=== PATIENT | male | born 1970 | race Caucasian/White ===

== ENCOUNTER 2017-01-01 03:08 | Emergency (ER) | payer MEDICAID, OTHER ==
[~2017-01-01] VITALS: Ht 175.3 cm; Wt 113.4 kg
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
--- OUTSIDE RECORDS SUMMARY | 2017-01-01 03:18 | XMS REPORT ---
Author Author JULIUS DOTY [facility] Address [address] [place] [address] Care Team Providers Care Firmware Software Verification Engineer Name Role Phone LALITHA JULIUS Unavailable PROBLEMS Type Condition ICD9-CM Code [id number] Code Onset Dates Condition Status SNOMED Code Problem Unspecified infective otitis externa 380.10 Active [id number] ALLERGIES Substance Reaction Event Type Date Status N.K.D.A. Unknown Non Drug Allergy Mar, Unknown SOCIAL HISTORY No smoking Hx information available PLAN OF CARE VITAL SIGNS Height 70 in 2016-04-08 Weight 284 lbs 2016-04-08 Temperature 97.9 degrees Fahrenheit 2016-04-08 Heart Rate 82 bpm 2016-04-08 Respiratory Rate 16 2016-04-08 BMI 40.75 kg/m2 2016-04-08 Blood pressure systolic 140 mmHg 2016-04-08 Blood pressure diastolic 100 mmHg 2016-04-08 MEDICATIONS Medication Instructions Dosage Frequency Start Date End Date Duration Status PredniSONE 20 mg Orally Once a day 2 tablets 24h Mar, Mar, 05 days Active RESULTS No Results PROCEDURES Procedure Date Ordered Related Diagnosis Body Site Office Visit, Est Pt., Level 3 Apr 08, 2016 IMMUNIZATIONS No Known Immunizations
--- OUTSIDE RECORDS SUMMARY | 2017-01-01 03:18 | XMS REPORT ---
Author Author JULIUS DOTY [facility] Address [facility] [place] [address] Care Team Providers Care Distribution Tech Name Role Phone UJLIUS DOTY Unavailable PROBLEMS Type Condition ICD9-CM Code [id number] Code Onset Dates Condition Status SNOMED Code Problem Unspecified infective otitis externa 380.10 Active [id number] ALLERGIES Substance Reaction Event Type Date Status N.K.D.A. Unknown Non Drug Allergy Mar, Unknown SOCIAL HISTORY No smoking Hx information available PLAN OF CARE VITAL SIGNS MEDICATIONS No Known Medications RESULTS No Results PROCEDURES No Known procedures IMMUNIZATIONS No Known Immunizations
--- OUTSIDE RECORDS SUMMARY | 2017-01-01 03:18 | XMS REPORT ---
Author Author MARIANO ZUÑIGA Organization [facility] Address [address] [place] [address] Care Team Providers Care Community Nutrition Educator Name Role Phone GILDAJuan JoseMARIANO Unavailable PROBLEMS Type Condition ICD9-CM Code EIL65-CM Code Onset Dates Condition Status SNOMED Code Problem Unspecified infective otitis externa 380.10 Active [id number] ALLERGIES Substance Reaction Event Type Date Status N.K.D.A. Unknown Non Drug Allergy Feb, Unknown SOCIAL HISTORY No smoking Hx information available PLAN OF CARE Activity Details Follow Up establish care Reason: VITAL SIGNS Height 70 in 2016-03-20 Weight 283.6 lbs 2016-03-20 Temperature 97.6 degrees Fahrenheit 2016-03-20 Heart Rate 76 bpm 2016-03-20 Respiratory Rate 18 2016-03-20 BMI 40.69 kg/m2 2016-03-20 Blood pressure systolic 138 mmHg 2016-03-20 Blood pressure diastolic 88 mmHg 2016-03-20 MEDICATIONS Medication Instructions Dosage Frequency Start Date End Date Duration Status Zyrtec Allergy 10 MG Orally Once a day 1 tablet 24h Active PredniSONE 20 mg Orally Once a day with food in the morning 1 tablet Feb, Feb, 05 days Active RESULTS No Results PROCEDURES Procedure Date Ordered Related Diagnosis Body Site Office Visit, Est Pt., Level 3 Mar 20, 2016 DEXAMETHASONE 4MG/ML (PER 1 MG) Mar 20, 2016 DEPO MEDROL 40 MG/ML Mar 20, 2016 THER/PROPH/DIAG INJ, SC/IM Mar 20, 2016 IMMUNIZATIONS Vaccine Route Administration Date Status DEPO MEDROL 40 MG/ML IM Intramuscular Mar 20, 2016 Administered DEXAMETHASONE 4MG/ML (PER 1 MG) IM Intramuscular Mar 20, 2016 Administered
--- OUTSIDE RECORDS SUMMARY | 2017-01-01 03:18 | XMS REPORT | Continuity of Care Document ---
Author Author [facility] Address Unknown Phone Unavailable Allergies Medications Problems Date Dx Coded Attending Type Code Diagnosis Diagnosed By 03/22/2013 TWILA GREEN, MARÍA 380.10 INFECTIVE OTITIS EXTERNA UNSPECIFIED Procedures Results Encounters ACCT No. Visit Date/Time Discharge Status Pt. Type Provider Facility Loc./Unit Complaint [id number] 03/22/2013 15:54:00 03/22/2013 23: 59:59 CLS Outpatient AMRÍA MATTSON MD
[2017-01-01 03:44] VITALS: BP 130/87
[2017-01-01] MEDS ORDERED: TETANUS,DIPTH,PERTUSS P/F (BOOSTRIX) 0.5 ML VIAL IM ONE ×2 (03:45→19:35)
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
[2017-01-01] MEDS ORDERED: OLANZapine 5 MG ODT (ZyPREXA ZYDIS) ONE (17:52)
[2017-01-01] MEDS ORDERED: fentaNYL INJECTION 100 MCG/2 ML AMP ONE (19:38)
[2017-01-01] MEDS ORDERED: HALOPERIDOL 5 MG (HALDOL) TAB ONE (22:20)
== END 2017-01-01 03:44 | disposition left against medical advice (07) ==
LOC: ER 03:15
DX: S01.01XA Laceration without foreign body of scalp, initial encounter (principal); Z23 Encounter for immunization; V48.6XXA Car passenger injured in noncollision transport accident in traffic accident, initial encounter
CPT/HCPCS: 99282

== ENCOUNTER 2017-01-01 14:37 | Emergency (ER) | payer OTHER ==
[~2017-01-01] VITALS: Ht 172.7 cm; Wt 99.8 kg
[2017-01-01 15:13] VITALS: BP 146/101
== END 2017-01-01 16:02 | disposition left against medical advice (07) ==
LOC: EDUNIT# 14:37 → ER 14:40
DX: S09.90XA Unspecified injury of head, initial encounter (principal); S69.91XA Unspecified injury of right wrist, hand and finger(s), initial encounter; S91.319A Laceration without foreign body, unspecified foot, initial encounter; W16.92XA Jumping or diving into unspecified water causing other injury, initial encounter
CPT/HCPCS: 93005; 99281

== ENCOUNTER 2017-01-01 17:23 | Observation (INO) | payer OTHER ==
[~2017-01-01] VITALS: Ht 180.3 cm; Wt 123.5 kg
[2017-01-01] MEDS ORDERED: OLANZapine 5 MG ODT (ZyPREXA ZYDIS) PO ONE (17:45)
[2017-01-01 17:59] LABS: BASOPHILS # (AUTO) 0.1 10^3/uL (0.0-0.1); BASOPHILS % (AUTO) 0 % (0-10); EOSINOPHILS # (AUTO) 0.3 10^3/uL (0.0-0.3); EOSINOPHILS % (AUTO) 2 % (0-10); LYMPHOCYTES # (AUTO) 1.5 X 10^3 (1.0-4.0); LYMPHOCYTES % (AUTO) 12 % (12-44); MEAN CORPUSCULAR HEMOGLOBIN 31 PG (25-34); MEAN CORPUSCULAR HGB CONC 34 G/DL (32-36); MEAN CORPUSCULAR VOLUME 92 FL (80-99); MEAN PLATELET VOLUME 9.4 FL (7.4-10.4); MONOCYTES # (AUTO) 1.2 X 10^3 (0.0-1.0); MONOCYTES % (AUTO) 10 % (0-12); NEUTROPHILS # (AUTO) 8.9 X 10^3 (1.8-7.8); NEUTROPHILS % (AUTO) 75 % (42-75); PLATELET COUNT 219 10^3/uL (130-400); RED BLOOD COUNT 4.75 10^6/uL (4.35-5.85); RED CELL DISTRIBUTION WIDTH 13.1 % (10.0-14.5); WHITE BLOOD COUNT 11.8 10^3/uL (4.3-11.0)
[2017-01-01 18:22] LABS: ALANINE AMINOTRANSFERASE 120 U/L (0-55); ALCOHOL < 10 MG/DL (<10); ANION GAP 13 MMOL/L (5-14); ASPARTATE AMINO TRANSFERASE 215 U/L (5-34); BLOOD UREA NITROGEN 21 MG/DL (7-18); BUN/CREATININE RATIO 24; CALCIUM 9.2 MG/DL (8.5-10.1); CARBON DIOXIDE 23 MMOL/L (21-32); CHLORIDE 105 MMOL/L (98-107); CREATININE SERUM 0.88 MG/DL (0.60-1.30); GFR ESTIMATED > 60; GLUCOSE 183 MG/DL (70-105); POTASSIUM 3.6 MMOL/L (3.6-5.0); SALICYLATE < 5.0 MG/DL (5.0-20.0); SODIUM 141 MMOL/L (135-145); TOTAL PROTEIN 7.1 GM/DL (6.4-8.2)
[2017-01-01 18:29] LABS: ACETAMINOPHEN < 10 UG/ML (10-30)
--- NOTE | 2017-01-01 18:43 | Diagnostic Imaging Report ---
INDICATION: Injury. COMPARISON: None. EXAMINATION: Three views of the right hand were obtained. FINDINGS: There is an impacted comminuted fracture of the distal fifth metacarpal with mild volar angulation of the distal fragment. No additional fracture, malalignment or osseous destructive process is seen. IMPRESSION: Impacted mildly angulated nondisplaced fracture of the distal right fifth metacarpal. Report was called to Dr. Pedro Tolbert in the [facility] ER at 6:42 p.m., by mary. Dictated by: Dictated on workstation # [id number]
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
[2017-01-01] MEDS ORDERED: fentaNYL INJECTION 100 MCG/2 ML AMP IVP ONE (19:45)
[2017-01-01] MEDS ORDERED: HALOPERIDOL 5 MG (HALDOL) TAB PO ONE (22:30)
[2017-01-01 22:38] LABS: BILIRUBIN,URINE NEGATIVE (NEGATIVE); KETONES,URINE 3+ (NEGATIVE); LEUKOCYTE ESTERASE ,URINE 1+ (NEGATIVE); NITRITE,URINE NEGATIVE (NEGATIVE); PH,URINE 6 (5-9); PROTEIN,URINE 2+ (NEGATIVE); UROBILINOGEN,URINE 1 MG/DL (NORMAL)
[2017-01-01 22:55] VITALS: BP 126/82
[2017-01-01 23:09] LABS: SQUAMOUS EPITHELIAL CELL,UR RARE /HPF; WBC,URINE 0-2 /HPF
[2017-01-01] MEDS ORDERED: fentaNYL INJECTION 100 MCG/2 ML AMP IV PRN (23:15)
[2017-01-01] MEDS ORDERED: ONDANSETRON 4 MG/2 ML (SDV) Z0FRAN IV PRN (23:15)
[2017-01-02 06:19] VITALS: BP 144/85
[2017-01-02] MEDS: HALOPERIDOL 5 MG (HALDOL) TAB PO SCH ×3 (06:19→20:43)
[2017-01-02 06:53] LABS: BASOPHILS # (AUTO) 0.1 10^3/uL (0.0-0.1); BASOPHILS % (AUTO) 1 % (0-10); EOSINOPHILS # (AUTO) 0.4 10^3/uL (0.0-0.3); EOSINOPHILS % (AUTO) 5 % (0-10); LYMPHOCYTES # (AUTO) 1.2 X 10^3 (1.0-4.0); LYMPHOCYTES % (AUTO) 15 % (12-44); MEAN CORPUSCULAR HEMOGLOBIN 31 PG (25-34); MEAN CORPUSCULAR HGB CONC 33 G/DL (32-36); MEAN CORPUSCULAR VOLUME 93 FL (80-99); MEAN PLATELET VOLUME 9.2 FL (7.4-10.4); MONOCYTES # (AUTO) 0.9 X 10^3 (0.0-1.0); MONOCYTES % (AUTO) 12 % (0-12); NEUTROPHILS # (AUTO) 5.2 X 10^3 (1.8-7.8); NEUTROPHILS % (AUTO) 67 % (42-75); PLATELET COUNT 216 10^3/uL (130-400); RED BLOOD COUNT 4.37 10^6/uL (4.35-5.85); RED CELL DISTRIBUTION WIDTH 13.2 % (10.0-14.5); WHITE BLOOD COUNT 7.7 10^3/uL (4.3-11.0)
[2017-01-02 07:03] LABS: ANION GAP 8 MMOL/L (5-14); BLOOD UREA NITROGEN 16 MG/DL (7-18); BUN/CREATININE RATIO 22; CALCIUM 8.5 MG/DL (8.5-10.1); CARBON DIOXIDE 25 MMOL/L (21-32); CHLORIDE 107 MMOL/L (98-107); CREATININE SERUM 0.74 MG/DL (0.60-1.30); GFR ESTIMATED > 60; GLUCOSE 146 MG/DL (70-105); POTASSIUM 3.7 MMOL/L (3.6-5.0); SODIUM 140 MMOL/L (135-145)
[2017-01-02] MEDS ORDERED: CATHETER FLUSH 10 ML SYR IV PRN (07:30)
[2017-01-02] MEDS ORDERED: INFLUENZA TRIvalent 2017-2018 0.5 ML/45 MCG SYR IM ONE (07:30)
[2017-01-02 08:00] VITALS: BP 129/81
[2017-01-02] MEDS: CATHETER FLUSH 10 ML SYR IV SCH ×2 (14:00→22:03)
[2017-01-02 20:37] VITALS: BP 144/86
[2017-01-02] MEDS: OLANZapine 5 MG (ZyPREXA) TAB PO SCH (20:43)
[2017-01-03] MEDS: CATHETER FLUSH 10 ML SYR IV SCH ×3 (04:49→21:56)
[2017-01-03 06:25] LABS: ALANINE AMINOTRANSFERASE 90 U/L (0-55); ALBUMIN 3.5 GM/DL (3.2-4.5); ANION GAP 12 MMOL/L (5-14); ASPARTATE AMINO TRANSFERASE 80 U/L (5-34); BILIRUBIN,TOTAL 0.6 MG/DL (0.1-1.0); BLOOD UREA NITROGEN 12 MG/DL (7-18); BUN/CREATININE RATIO 15; CALCIUM 8.9 MG/DL (8.5-10.1); CARBON DIOXIDE 22 MMOL/L (21-32); CHLORIDE 105 MMOL/L (98-107); CREATINE KINASE 1845 U/L (30-200); CREATININE SERUM 0.81 MG/DL (0.60-1.30); GFR ESTIMATED > 60; GLUCOSE 140 MG/DL (70-105); POTASSIUM 3.7 MMOL/L (3.6-5.0); SODIUM 139 MMOL/L (135-145); TOTAL PROTEIN 6.5 GM/DL (6.4-8.2)
[2017-01-03] MEDS: HALOPERIDOL 5 MG (HALDOL) TAB PO SCH ×3 (06:48→21:51)
[2017-01-03 06:50] VITALS: BP 121/75
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
[2017-01-03 12:00] VITALS: BP 140/69
[2017-01-03] MEDS ORDERED: ZIPRASIDONE 20 MG INJ (GEODON) VIAL IM NR (19:00)
[2017-01-03] MEDS: OLANZapine 5 MG (ZyPREXA) TAB PO SCH (21:51)
[2017-01-04] MEDS: CATHETER FLUSH 10 ML SYR IV SCH (06:01)
[2017-01-04] MEDS ORDERED: WATER (STERILE) FOR INJECTION 10 ML ONE (07:30)
[2017-01-04] MEDS ORDERED: ZIPRASIDONE 20 MG INJ (GEODON) VIAL IM ONE (07:30)
[2017-01-04] MEDS: HALOPERIDOL 5 MG (HALDOL) TAB PO SCH (07:44)
== END 2017-01-04 07:41 ==
LOC: EDUNIT# 17:23 → ER 17:24 → ICU 22:35 → UNDOADMOB 22:35 → ICU 22:50 → UNDODISOB 01-04 07:50
PROVIDERS: ADMIT Pediatrics; ATTEND Pediatrics
DX: F29 Unspecified psychosis not due to a substance or known physiological condition (principal); M62.82 Rhabdomyolysis; S62.666A Nondisplaced fracture of distal phalanx of right little finger, initial encounter for closed fracture; V48.4XXA Person boarding or alighting a car injured in noncollision transport accident, initial encounter; Z59.0 Homelessness; Z87.891 Personal history of nicotine dependence
CPT/HCPCS: 29125; 36415; 73130; 80048; 80053; 80306; 80320; 80329; 81000; 82550; 82553; 85025; 93005; 96374

== ENCOUNTER → 2017-10-15 | Outpatient (CLI) | payer OTHER ==
--- NOTE | 2017-10-15 13:33 | Diagnostic Imaging Report ---
INDICATION: Sensation with palpation in the neck. FINDINGS: Both lobes of the thyroid gland are enlarged. Right lobe measures 5.8 x 2.3 x 1.9 cm and the left lobe measures 6.1 x 2.7 x 2.3 cm. There are nodules in both lobes. Largest nodule on the right is lower pole approximately 9 mm in size. The largest nodule on the left is approximately 11 mm x 12 mm. No microcalcifications are seen. IMPRESSION: Bilateral thyroid nodules, as described. Follow-up ultrasound in six months could be performed to confirm stability. Dictated by: Dictated on workstation # [id number]
== END ==
LOC: RAD 10:58
PROVIDERS: ATTEND Nurse Practitioner Community Health
DX: E04.2 Nontoxic multinodular goiter (principal); J39.2 Other diseases of pharynx; R29.2 Abnormal reflex
CPT/HCPCS: 76536

== ENCOUNTER → 2017-10-23 | Outpatient (CLI) | payer OTHER | LOC: RAD 12:37 | PROVIDERS: ATTEND Nurse Practitioner Community Health | DX: E04.1 Nontoxic single thyroid nodule (principal); Z53.8 Procedure and treatment not carried out for other reasons ==

== ENCOUNTER → 2018-06-30 | Outpatient (CLI) | payer OTHER ==
--- NOTE | 2018-06-30 16:34 | Diagnostic Imaging Report ---
PROCEDURE: US Thyroid. TECHNIQUE: Multiple real-time grayscale images were obtained of the thyroid in various projections. INDICATION: Thyroid nodule. COMPARISON: Correlation is made with prior ultrasound from 10/15/2017. FINDINGS: The right lobe of the thyroid measures 5.6 x 2.7 x 2.4 cm and the left lobe measures 4.9 x 2.9 x 2.1 cm. There are bilateral thyroid nodules. Previously noted hypoechoic nodule in left lobe is stable at approximately 1.2 x 0.9 x 1.2 cm. A tiny subcentimeter nodule in upper pole of right lobe is stable. Lower pole nodule measures slightly larger at 1.2 x 1.1 x 1.0 cm. There appears to be a new nodule in the lower pole measuring 1.3 x 0.8 x 1.4 cm. No microcalcifications are seen. IMPRESSION: Bilateral thyroid nodules, as described. These most likely are secondary to multinodular goiter. Continued followup with repeat thyroid ultrasound in six months is recommended to assure continued stability. Dictated by: Dictated on workstation # [id number]
== END ==
LOC: RAD 15:09
PROVIDERS: ATTEND Pediatrics
DX: E04.2 Nontoxic multinodular goiter (principal)
CPT/HCPCS: 76536

== ENCOUNTER → 2018-12-25 | Outpatient (CLI) | payer OTHER ==
--- NOTE | 2018-12-25 16:17 | Diagnostic Imaging Report ---
PROCEDURE: US thyroid. TECHNIQUE: Multiple real-time grayscale images were obtained of the thyroid in various projections. INDICATION: Thyroid nodules. COMPARISON: Correlation made with prior thyroid ultrasound from 06/30/2018. FINDINGS: Right lobe of the thyroid measures 6.5 x 2.7 x 2.5 cm and the left lobe measures 5.4 x 2.4 x 2.3 cm. Isthmus is 5 mm in thickness. Bilateral thyroid nodules are again noted. Hypoechoic nodule in lower pole left lobe measures 1.4 x 0.8 x 1.2 cm, similar to prior. A nodule in the mid lower portion of the right lobe measures 1.2 x 0.7 x 0.8 cm, unchanged. A nodule just inferior to this in the lower pole is 1.3 x 0.9 x 1.3 cm, unchanged. No new mass is seen. IMPRESSION: Stable bilateral thyroid nodules when compared with examination from 06/30/2018. Continued followup could be obtained at six months. Dictated on workstation # [id number]
== END ==
LOC: RAD 10:38
PROVIDERS: ATTEND Pediatrics
DX: E04.2 Nontoxic multinodular goiter (principal); R29.2 Abnormal reflex
CPT/HCPCS: 76536

== ENCOUNTER 2019-05-16 05:49 | Emergency (ER) | payer SELFPAY ==
[~2019-05-16] VITALS: Ht 180 cm; Wt 135.8 kg
[2019-05-16] MEDS ORDERED: LACTATED RINGERS 1,000 ML IV ONE (06:30)
--- NOTE | 2019-05-16 06:48 | ED General ---
General Chief Complaint: Respiratory Problems Stated Complaint: DIZZINESS, WHOLE BODY NUMBNESS Nursing Triage Note: soa, generalized numbness Nursing Sepsis Screen: No Definite Risk Source of Information: Patient Exam Limitations: No Limitations History of Present Illness Date Seen by Provider: May 16, 2019 Time Seen by Provider: 06:10 Initial Comments This 48-year-old gentleman presents to the emergency room after waking up feeling short of breath, weak, and numb. He describes the numbness as a dissociated feeling as though he had taken strong pain medication. He denies using anything other than Advil. He had diarrhea last night and again this morning but denies any other acute illness. He has had no nausea, vomiting, cough, or fever. He denies tobacco, alcohol, and drug use. He has no major medical problems. He is afebrile but slightly tachycardic. Allergies and Home Medications Allergies Coded Allergies: No Known Drug Allergies (Unverified , 01/01/17) Home Medications No Active Prescriptions or Reported Meds Patient Home Medication List Home Medication List Reviewed: Yes Review of Systems Review of Systems Constitutional: see HPI EENTM: other ("[place]") Respiratory: no symptoms reported Cardiovascular: see HPI Gastrointestinal: see HPI Genitourinary: no symptoms reported Musculoskeletal: no symptoms reported Skin: no symptoms reported Psychiatric/Neurological: See HPI Hematologic/Lymphatic: No Symptoms Reported Immunological/Allergic: no symptoms reported Past Nmdhnqu-Gohwcx-Gqymix Hx Past Med/Social Hx: Reviewed Nursing Past Med/Soc Hx Patient Social History Alcohol Use: Denies Use Recreational Drug Use: No Smoking Status: Never a Smoker 2nd Hand Smoke Exposure: No Recent Foreign Travel: No Contact w/Someone Who Travel: No Recent Infectious Disease Expo: No Recent Hopitalizations: No Physical Abuse: No Sexual Abuse: No Mistreated: No Fear: No Immunizations Up To Date Tetanus Booster (TDap): Unknown Seasonal Allergies Seasonal Allergies: Yes Past Medical History Surgeries: Yes (RIGHT LEG FRACTURE, LEFT THUMB INJURY/SURGERY) Orthopedic Respiratory: Yes Asthma Cardiac: No Neurological: No Genitourinary: No Gastrointestinal: No Musculoskeletal: Yes Fractures Endocrine: No HEENT: No Cancer: No Psychosocial: Yes PTSD Integumentary: No Blood Disorders: No Physical Exam Vital Signs Vital Signs - First Documented 05/16/19 05:50 Temp 36.1 Pulse 106 Resp 18 B/P (MAP) 160/108 (125) Pulse Ox 99 O2 Delivery Room Air Capillary Refill : Less Than 3 Seconds Height, Weight, BMI Height: 5'11.00" Weight: 272lbs. 4.0oz. 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 Skin: Normal Color, Warm/Dry Progress/Results/Core Measures Suspected Sepsis Recent Fever Within 48 Hours: No Infection Criteria Present: None New/Unexplained Altered Menta: No Sepsis Screen: No Definite Risk SIRS Temperature: Pulse: 106 Respiratory Rate: 18 Laboratory Tests 05/16/19 07:03: White Blood Count 7.5 Blood Pressure 160 /108 Mean: 125 Laboratory Tests 05/16/19 07:03: Creatinine 0.95, Platelet Count 244, Total Bilirubin 0.4 Results/Orders Lab Results Laboratory Tests Test 05/16/19 06:40 05/16/19 07:03 Range/Units Urine Color YELLOW Urine Clarity CLEAR Urine pH 6.5 5-9 Urine Specific [place] <=1.005 1.016-1.022 Urine Protein NEGATIVE NEGATIVE Urine Glucose (UA) 1+ H NEGATIVE Urine Ketones NEGATIVE NEGATIVE Urine Nitrite NEGATIVE NEGATIVE Urine Bilirubin NEGATIVE NEGATIVE Urine Urobilinogen 0.2 < = 1.0 MG/DL Urine Leukocyte Esterase NEGATIVE NEGATIVE Urine RBC (Auto) NEGATIVE NEGATIVE Urine RBC NONE /HPF Urine WBC NONE /HPF Urine Squamous Epithelial Cells 0-2 /HPF Urine Crystals NONE /LPF Urine Bacteria TRACE /HPF Urine Casts NONE /LPF Urine Mucus NEGATIVE /LPF Urine Culture Indicated NO White Blood Count 7.5 4.3-11.0 10^3/uL Red Blood Count 4.91 4.35-5.85 10^6/uL Hemoglobin 15.3 13.3-17.7 G/DL Hematocrit 45 40-54 % Mean Corpuscular Volume 91 80-99 FL Mean Corpuscular Hemoglobin 31 25-34 PG Mean Corpuscular Hemoglobin Concent 34 32-36 G/DL Red Cell Distribution Width 12.7 10.0-14.5 % Platelet Count 244 130-400 10^3/uL Mean Platelet Volume 8.6 7.4-10.4 FL Neutrophils (%) (Auto) 77 H 42-75 % Lymphocytes (%) (Auto) 13 12-44 % Monocytes (%) (Auto) 8 0-12 % Eosinophils (%) (Auto) 1 0-10 % Basophils (%) (Auto) 1 0-10 % Neutrophils # (Auto) 5.8 1.8-7.8 X 10^3 Lymphocytes # (Auto) 1.0 1.0-4.0 X 10^3 Monocytes # (Auto) 0.6 0.0-1.0 X 10^3 Eosinophils # (Auto) 0.1 0.0-0.3 10^3/uL Basophils # (Auto) 0.1 0.0-0.1 10^3/uL Sodium Level 144 135-145 MMOL/L Potassium Level 4.1 3.6-5.0 MMOL/L Chloride Level 98 98-107 MMOL/L Carbon Dioxide Level 22 21-32 MMOL/L Anion Gap 24 H 5-14 MMOL/L Blood Urea Nitrogen 10 7-18 MG/DL Creatinine 0.95 0.60-1.30 MG/DL Estimat Glomerular Filtration Rate > 60 BUN/Creatinine Ratio 11 Glucose Level 162 H 70-105 MG/DL Calcium Level 8.2 L 8.5-10.1 MG/DL Corrected Calcium 8.2 L 8.5-10.1 MG/DL Magnesium Level 2.3 1.6-2.4 MG/DL Total Bilirubin 0.4 0.1-1.0 MG/DL Aspartate Amino Transf (AST/SGOT) 24 5-34 U/L Alanine Aminotransferase (ALT/SGPT) 42 0-55 U/L Alkaline Phosphatase 59 40-136 U/L Total Protein 6.8 6.4-8.2 GM/DL Albumin 4.0 3.2-4.5 GM/DL Micro Results Microbiology 05/16/19 Influenza Types A,B Antigen (ARCHANA) - Final, Complete My Orders Orders - KEREN HERNÁNDEZ MD Ed Iv/Invasive Line Start (05/16/19 06:30) Lactated Ringers (Lr 1000 Ml Iv Solution (05/16/19 06:30) Cbc With Automated Diff (05/16/19 06:30) Comprehensive Metabolic Panel (05/16/19 06:30) Magnesium (05/16/19 06:30) Ua Culture If Indicated (05/16/19 06:30) Influenza A And B Antigens (05/16/19 06:30) Medications Given in ED Current Medications Medications Dose Ordered Sig/Carmel Route Start Time Stop Time Status Last Admin Dose Admin Lactated Ringer's 1,000 ml @ 0 mls/hr Q0M ONCE IV 05/16/19 06:30 05/16/19 06:32 DC 05/16/19 06:46 0 MLS/HR Vital Signs/I&O 05/16/19 05/16/19 05:50 08:13 Temp 36.1 36.1 Pulse 106 106 Resp 18 18 B/P (MAP) 160/108 (125) 145/89 (125) Pulse Ox 99 99 O2 Delivery Room Air Capillary Refill : Less Than 3 Seconds Blood Pressure Mean: 125 Progress Note #1: Time: 06:47 Progress Note Labs are pending. A liter of IV fluid is being run. Influenza swab is pending. Progress Note #2: Time: 07:59 Progress Note Patient is feeling better after a liter of IV fluid. 2 abnormalities were noted on his blood work including a slightly low calcium and hyperglycemia. I discussed these abnormalities with the patient and encouraged him to follow-up for repeat lab work later this week. Departure Impression Primary Impression: Diarrhea Qualified Codes: R19.7 - Diarrhea, unspecified Additional Impression: Hyperglycemia Disposition: 01 HOME, SELF-CARE Condition: Improved Departure-Patient Inst. Referrals: [facility] [place] Primary Care Physician JAMES KERNS MD (Family) Primary Care Physician Patient Instructions: Diarrhea in Adolescents and Adults, Hyperglycemia, Adult Add. Discharge Instructions: Drink plenty of clear liquids today. Avoid highly sugary foods and drinks as your blood sugar was elevated today at 162. Start with a clear liquid diet throughout the day today. This evening you may gradually advance her diet with small quantities of bland food. [place] foods might include white rice, white chicken, toast, crackers, bananas, etc. Avoid dairy products or fatty or greasy foods until your diarrhea has resolved for at least 48 hours. Please follow-up in the clinic next week. Call early Friday morning to schedule an appointment. You should have your blood work checked again next week including your blood sugar and your calcium. Your blood sugar was high and her calcium was slightly low. You may eat a few Tums a couple times a day to help support your calcium until repeat lab work can be obtained. Return to the emergency room emergency room if you have worsening symptoms until your follow-up. A copy of your ER documentation is being sent to the [facility] clinic for their conven ience. All discharge instructions reviewed with patient and/or family. Voiced understanding. Scripts No Active Prescriptions or Reported Meds Copy Copies To 1: JAMES KERNS MD, JOSHUA T MD May 16, 2019 06:48
[2019-05-16 06:51] LABS: BILIRUBIN,URINE NEGATIVE (NEGATIVE); CLARITY,URINE CLEAR; COLOR,URINE YELLOW; GLUCOSE, URINE (UA) 1+ (NEGATIVE); KETONES,URINE NEGATIVE (NEGATIVE); LEUKOCYTE ESTERASE ,URINE NEGATIVE (NEGATIVE); NITRITE,URINE NEGATIVE (NEGATIVE); PH,URINE 6.5 (5-9); PROTEIN,URINE NEGATIVE (NEGATIVE)
[2019-05-16 07:03] LABS: BACTERIA,URINE TRACE /HPF; SQUAMOUS EPITHELIAL CELL,UR 0-2 /HPF
[2019-05-16 07:08] LABS: BASOPHILS # (AUTO) 0.1 10^3/uL (0.0-0.1); BASOPHILS % (AUTO) 1 % (0-10); EOSINOPHILS # (AUTO) 0.1 10^3/uL (0.0-0.3); EOSINOPHILS % (AUTO) 1 % (0-10); HEMATOCRIT 45 % (40-54); HEMOGLOBIN 15.3 G/DL (13.3-17.7); LYMPHOCYTES % (AUTO) 13 % (12-44); MEAN CORPUSCULAR HEMOGLOBIN 31 PG (25-34); MEAN CORPUSCULAR HGB CONC 34 G/DL (32-36); MEAN CORPUSCULAR VOLUME 91 FL (80-99); MEAN PLATELET VOLUME 8.6 FL (7.4-10.4); MONOCYTES # (AUTO) 0.6 X 10^3 (0.0-1.0); MONOCYTES % (AUTO) 8 % (0-12); NEUTROPHILS # (AUTO) 5.8 X 10^3 (1.8-7.8); NEUTROPHILS % (AUTO) 77 % (42-75); PLATELET COUNT 244 10^3/uL (130-400); RED CELL DISTRIBUTION WIDTH 12.7 % (10.0-14.5); WHITE BLOOD COUNT 7.5 10^3/uL (4.3-11.0)
[2019-05-16 07:27] LABS: ALANINE AMINOTRANSFERASE 42 U/L (0-55); ALKALINE PHOSPHATASE 59 U/L (40-136); BILIRUBIN,TOTAL 0.4 MG/DL (0.1-1.0); BUN/CREATININE RATIO 11; CALCIUM 8.2 MG/DL (8.5-10.1); CARBON DIOXIDE 22 MMOL/L (21-32); CHLORIDE 98 MMOL/L (98-107); CREATININE SERUM 0.95 MG/DL (0.60-1.30); GFR ESTIMATED > 60; GLUCOSE 162 MG/DL (70-105); MAGNESIUM 2.3 MG/DL (1.6-2.4); POTASSIUM 4.1 MMOL/L (3.6-5.0); SODIUM 144 MMOL/L (135-145); TOTAL PROTEIN 6.8 GM/DL (6.4-8.2)
[2019-05-16 08:13] VITALS: BP 145/89
== END 2019-05-16 08:13 | disposition home or self-care (01) ==
LOC: EDUNIT# 05:49 → ER 05:50
DX: R19.7 Diarrhea, unspecified (principal); R73.9 Hyperglycemia, unspecified
CPT/HCPCS: 36415; 80053; 81000; 83735; 85025; 87804; 96360